=== PATIENT | female | born 2000 | race Caucasian/White ===

== ENCOUNTER 2021-09-24 13:03 | Inpatient (IN) | payer OTHER ==
[~2021-09-24] VITALS: Ht 167.6 cm; Wt 71.6 kg
--- NOTE | 2021-09-24 13:27 | PHYS DOC ---
General Adult EDM: Chief Complaint: FLANK PAIN HPI: HPI: Patient is a 21-year-old female presents with right-sided flank pain. Patient has been on an antibiotic for the past couple of days for UTI. Patient was seen in urgent care last night and changed antibiotic to Cipro. Patient is now running a fever and pain has increased on right flank. (HUANG GALLEGO APRN) Review of Systems: Review of Systems: ROS At least 10 ROS systems have been reviewed and are negative except as documented in the HPI. General: Negative except as outlined in HPI above. Skin: Negative except as outlined in HPI above. HEENT: Negative except as outlined in HPI above. Neck: Negative except as outlined in HPI above. Respiratory: Negative except as outlined in HPI above.. Cardiovascular: Negative except as outlined in HPI above. Abdomen: Negative except as outlined in HPI above. : Negative except as outlined in HPI above. Back/MSK: Negative except as outlined in HPI above. Neuro: Negative except as outlined in HPI above. Psych: Negative except as outlined in HPI above. (HUANG GALLEGO APRN) Allergies: Allergies: Allergies Coded Allergies Type Severity Reaction Last Updated Verified ibuprofen Allergy Severe 09/24/21 Yes (HUANG GALLEGO APRN) Physical Exam: PE: Constitutional: Well developed, well nourished, no acute distress, non-toxic appearance. [] HENT: Normocephalic, atraumatic, bilateral external ears normal, oropharynx moist, no oral exudates, nose normal. [] Eyes: PERRLA, EOMI, conjunctiva normal, no discharge. [] Neck: Normal range of motion, no tenderness, supple, no stridor. [] Cardiovascular:Heart rate regular rhythm, no murmur [] Lungs & Thorax: Bilateral breath sounds clear to auscultation [] Abdomen: Bowel sounds normal, soft, no tenderness, no masses, no pulsatile mass es. [] Skin: Warm, dry, no erythema, no rash. [] Back: No tenderness, no CVA tenderness. [] Extremities: No tenderness, no cyanosis, no clubbing, ROM intact, no edema. [] Neurologic: Alert and oriented X 3, normal motor function, normal sensory function, no focal deficits noted. [] Psychologic: Affect normal, judgement normal, mood normal. [] (GALLEGOHUANG APRN) EKG: EKG: [] (HUANG GALLEGO APRN) Radiology/Procedures: Radiology/Procedures: []INDICATION: Reason: FLANK PAIN,R / Spl. Instructions: / History: COMPARISON: None. TECHNIQUE: Axial CT images were obtained through the abdomen and pelvis without intravenous contrast. One or more of the following individualized dose reduction techniques were utilized for this examination: 1. Automated exposure control; 2. Adjustment of the mA and/or kV according to patient size; 3. Use of iterative reconstruction technique. FINDINGS: Vascular: No abdominal aortic aneurysm. Hepatobiliary: No intrahepatic biliary duct dilation. Pancreas: Limited assessment without contrast. Spleen: Spleen unremarkable. Renal/Bladder: Urinary bladder wall is mildly prominent in thickness for the degree of distention. Mild right-sided hydronephrosis and hydroureter with some perinephric and periureteral edema and fluid Gastrointestinal: . Secondary to lack of intravenous and oral contrast evaluation of the appendix is limited. It may be visualized for short distance but not well evaluated. IMPRESSION: * Right-sided mild hydronephrosis and hydroureter with perinephric and periureteral edema is also small amount of adjacent fluid. Differential considerations would include a recently passed right ureter stone with another possible cause including urinary tract infection. Would correlate with symptoms and lab markers. Electronically signed by: Levy Alfonso MD (09/24/2021 2:47 PM) [id number] DICTATED AND SIGNED BY: LEVY ALFONSO MD DATE: 09/24/21 1430 CC: HUANG GALLEGO APRN; PCP,NO ~ (HUANG GALLEGO APRN) Heart Score: C/O Chest Pain: No Risk Factors: Risk Factors: DM, Current or recent (<one month) smoker, HTN, HLP, family history of CAD, obesity. Risk Scores: Score 0 - 3: 2.5% MACE over next 6 weeks - Discharge Home Score 4 - 6: 20.3% MACE over next 6 weeks - Admit for Clinical Observation Score 7 - 10: 72.7% MACE over next 6 weeks - Early Invasive Strategies (HUANG GALLEGO APRN) Course & Med Decision Making: Course & Med Decision Making Pertinent Labs and Imaging studies reviewed. (See chart for details) [] 21-year-old female presents with right-sided flank pain. Patient is currently on ciprofloxacin for UTI. Patient reports her symptoms have not improved after antibiotic treatment for 3 days. Patient was running 102 t emperature at home. Work-up in ER consisted of CBC, CMP, lipase, CT abdomen and pelvis. Patient's pain was treated while in the ER. Patient given Toradol, Tylenol for fever control. Urinalysis came back with large blood, nitrates, leukocytes. CT abdomen pelvis shows mild right-sided hydronephrosis and hydroureter with some perinephric and periureteral edema and fluid. I discussed all results with patient. Advised patient she would need to be admitted to receive IV antibiotics. Spoke with Dr. Murdock who is willing to accept patient at [place]. Patient will be admitted for pyelonephritis. Patient started on Levaquin. (HUANG GALLEGO APRN) Kandice Disclaimer: Kandice Disclaimer: This electronic medical record was generated, in whole or in part, using a voice recognition dictation system. (HUANG GALLEGO APRN) Attending Co-Sign The patient was seen and interviewed as well as examined at the bedside. The chart was reviewed. The case was discussed. Agree with the plan of care. (SHARMILA YATES DO) Departure Departure: Disposition: HOME / SELF CARE / HOMELESS Condition: STABLE Referrals: PCP,NO (PCP) HUANG GALLEGO APRN Sep 24, 2021 13:27 SHARMILA YATES DO Sep 25, 2021 06:07
[2021-09-24] MEDS ORDERED: ACETAMINOPHEN 500 MG TABLET PO ONE (13:45)
[2021-09-24] MEDS ORDERED: ONDANSETRON PF 4 MG/2 ML VIAL. IVP ONE ×2 (13:45→16:15)
[2021-09-24] MEDS ORDERED: IV NORMAL SALINE 1,000ML 1,000 ML IV ONE (13:45)
[2021-09-24 13:50] LABS: BASO % 1 % (0-3); EOS % 0 % (0-3); HEMATOCRIT 38.2 % (36.0-47.0); LYMPH # 0.5 x10^3/uL (1.0-4.8); LYMPH % 7 % (24-48); MEAN CORPUSCULAR HEMOGLOBIN 32 pg (25-35); MEAN CORPUSCULAR HGB CONC 34 g/dL (31-37); MEAN CORPUSCULAR VOLUME 94 fL (79-100); MONO # 0.3 x10^3/uL (0.0-1.1); MONO % 4 % (0-9); NEUT # 6.5 x10^3uL (1.8-7.7); NEUT % 89 % (31-73); PLATELET COUNT 169 x10^3/uL (140-400); RED BLOOD COUNT 4.09 x10^6/uL (3.50-5.40); RED CELL DISTRIBUTION WIDTH 11.9 % (11.5-14.5); WHITE BLOOD COUNT 7.4 x10^3/uL (4.0-11.0)
[2021-09-24 13:59] LABS: CALCIUM 8.9 mg/dL (8.5-10.1); CREATININE 0.9 mg/dL (0.6-1.0); GFR 78.3; POTASSIUM 3.6 mmol/L (3.5-5.1)
[2021-09-24 14:00] LABS: BACTERIA,URINE FEW /HPF (0-FEW); CLARITY,URINE CLOUDY; COLOR,URINE YELLOW; GLUCOSE,URINE NEG (NEG); NITRITE,URINE POS (NEG); UROBILINOGEN,URINE 0.2 mg/dL (0.2 mg/dL); WBC,URINE TNTC /HPF (0-4)
[2021-09-24 14:01] LABS: SQUAMOUS EPITHELIAL CELL,UR MOD /LPF
[2021-09-24 14:05] LABS: ALBUMIN 3.6 g/dL (3.4-5.0); TOTAL PROTEIN 7.2 g/dL (6.4-8.2)
--- NOTE | 2021-09-24 14:50 | RAD ---
INDICATION: Reason: FLANK PAIN,R / Spl. Instructions: / History: COMPARISON: None. TECHNIQUE: Axial CT images were obtained through the abdomen and pelvis without intravenous contrast. One or more of the following individualized dose reduction techniques were utilized for this examinat ion: 1. Automated exposure control; 2. Adjustment of the mA and/or kV according to patient size; 3 . Use of iterative reconstruction technique. FINDINGS: Vascular: No abdominal aortic aneurysm. Hepatobiliary: No intrahepatic biliary duct dilation. Pancreas: Limited assessment without contrast. Spleen: Spleen unremarkable. Renal/Bladder: Urinary bladder wall is mildly prominent in thickness for the degree of distention. Mi ld right-sided hydronephrosis and hydroureter with some perinephric and periureteral edema and fluid Gastrointestinal: . Secondary to lack of intravenous and oral contrast evaluation of the appendix is limited. It may be visualized for short distance but not well evaluated. IMPRESSION: * Right-sided mild hydronephrosis and hydroureter with perinephric and periureteral edema is also s mall amount of adjacent fluid. Differential considerations would include a recently passed right uret er stone with another possible cause including urinary tract infection. Would correlate with symptoms and lab markers. Electronically signed by: Juan M Moe MD (09/24/2021 2:47 PM) [id number]
[2021-09-24] MEDS: IV NORMAL SALINE 1,000ML 1,000 ML IV SCH (15:52)
[2021-09-24] MEDS: MORPHINE SULFATE 4 MG/ML DISP.SYRIN. IVP PRN ×2 (15:55→18:46)
[2021-09-24 17:00] VITALS: BP 98/62
[2021-09-24] MEDS ORDERED: ONDANSETRON PF 4 MG/2 ML VIAL. IVP PRN (18:30)
[2021-09-24 20:07] VITALS: BP 100/65
[2021-09-24 23:49] VITALS: BP 97/60
[2021-09-25] MEDS: MORPHINE SULFATE 4 MG/ML DISP.SYRIN. IVP PRN ×2 (00:26→11:19)
[2021-09-25] MEDS: IV NORMAL SALINE 1,000ML 1,000 ML IV SCH (03:50)
[2021-09-25 06:30] VITALS: BP 94/59
[2021-09-25] MEDS: LACTOBACILLUS RHAMNOSUS GG 1 CAPSULE. PO SCH ×2 (09:57→20:45)
--- NOTE | 2021-09-25 10:17 | HP ---
DATE OF SERVICE: 09/25/2021 ADMIT DATE: 09/24/2021 ATTENDING PHYSICIAN: Dr. Murdock. CHIEF COMPLAINT: Right flank pain. HISTORY OF PRESENT ILLNESS: The patient is a very pleasant 21-year-old female who was diagnosed and started on antibiotics for urinary tract infection. She just got 2 weeks ago. She is coming back from her [facility]. She has had fevers, pain and nausea. No vomiting. She went initially to an urgent care clinic. Cultures were sent out. It did grow out E. coli, but was resistant to the Bactrim antibiotic she was placed on. They called in Cipro, but before she was able to take any doses down, she went to the Emergency Department with worsening symptoms. She was given Levaquin as well as pain meds and fluids. She is admitted then with pyelonephritis as part of the workup. PAST MEDICAL HISTORY: Unremarkable. She has been fairly healthy. She is not on any prescription meds. SOCIAL HISTORY: Nonsmoker, nondrinker. She recently got less than 2 weeks ago just returning from her [facility]. FAMILY HISTORY: Parents alive in their early 50s. No chronic problems. PAST SURGICAL HISTORY: None. REVIEW OF SYSTEMS: Significant for the recent honeymoon, the trip. No COVID exposure. All other systems reviewed and turned to be negative. PHYSICAL EXAMINATION: GENERAL: When I saw her, this is a very pleasant young female. VITAL SIGNS: Initial vital signs showed a blood pressure 100/65 mmHg. She is afebrile. Oxygen saturation 95% on room air. HEENT: Head is without trauma. Pupils are reactive. Sclerae nonicteric. The oropharynx is clear. NECK: Supple, no bruits. LUNGS: Otherwise clear. CARDIOVASCULAR: Showed regular heart tones. ABDOMEN: Soft. No guarding. EXTREMITIES: Showed minimal right sided flank tenderness on palpation, no masses. Without edema. NEUROLOGIC FINDINGS: Focally intact. PERTINENT LABORATORY STUDIES: The hemoglobin on admission was 13.0 g/dL, white count 7400. Electrolytes within normal range. Nonfasting blood sugar 126. Urinalysis showed moderate amount of red cells, too numerous to count white cells, large amount of nitrites. Serology negative for coronavirus. ASSESSMENT: 1. A 21-year-old female with a right sided acute pyelonephritis. 2. Literally honeymoon cystitis as she just returned from her [facility]. 3. Mild dehydration clinically. PLAN: 1. Admit to the inpatient unit. 2. Intravenous Levaquin has been ordered. 3. Pain control. 4. Diet as tolerated. ANIBAL DR: Saturnino TID: [id number]
[2021-09-25 10:21] VITALS: BP 107/63
[2021-09-25 14:49] VITALS: BP 102/70
[2021-09-25] MEDS ORDERED: MORPHINE SULFATE 4 MG/ML DISP.SYRIN. IV PRN (16:45)
[2021-09-25] MEDS ORDERED: IV NORMAL SALINE 1,000ML 1,000 ML IV SCH (16:45)
[2021-09-25 19:24] VITALS: BP 100/63
[2021-09-26 05:52] VITALS: BP 104/62
--- NOTE | 2021-09-27 02:37 | DS ---
DATE OF DISCHARGE: 09/26/2021 ATTENDING PHYSICIAN: Dane Murdock MD FINAL DISCHARGE DIAGNOSES: 1. Pyelonephritis. 2. Honeymoon cystitis. 3. Mild dehydration, rehydrated. HISTORY AND PHYSICAL: The patient is a 21-year-old female with nausea, flank pain and workup in the ED showed right-sided pyelonephritis. She had an urine culture done in urgent care clinic. She is otherwise healthy. The cultures grew back E. coli. I do not have the exact report, but it was sensitive to quinolones. PHYSICAL EXAMINATION: Please see my dictated note. PERTINENT LABORATORY AND X-RAY STUDIES: In this admission, her hemoglobin was 13.0 grams, white count 7400. Chemistry panel unremarkable. Liver panel normal. Serology negative for coronavirus. COURSE IN THE HOSPITAL: She was treated with intravenous Levaquin for 2 full days. Pain managed, diet advanced. By the third hospital day, her vital signs were stable. Pain had subsided. She is ready for discharge. I recommended 8 more days of Levaquin 750 p.o. one daily. In addition, she will take Tylenol [id number] for pain. I recommend a followup with her primary care physician and recheck UA in 10 days. Whether or not she will follow up, remains to be seen, but she is fairly reasonable. She recently moved here from out of town. She was discharged then from our hospital in stable condition with explicit drug and followup care. Total discharge time spent is 41 minutes. ORESTES GARCIA: Saturnino TID: [id number]
== END 2021-09-26 09:40 | disposition home or self-care (01) | DRG 690 ==
LOC: ER 13:03 → ER HOLD 15:19 → 1 SOUTH 16:11
PROVIDERS: ADMIT Hospitalist; ATTEND Hospitalist
DX: N13.6 Pyonephrosis (principal); Z87.442 Personal history of urinary calculi; E86.0 Dehydration; Z20.822 Contact with and (suspected) exposure to COVID-19; Z88.8 Allergy status to other drugs, medicaments and biological substances; B96.20 Unspecified Escherichia coli [E. coli] as the cause of diseases classified elsewhere
CPT/HCPCS: 36415; 74176; 80053; 81001; 81025; 85025; 86140; 87040; 87077; 87086; 87186; 87426; 96365; 96375; 96376; J1956; J2270; J2405; J3010; U0003; 99285-25; J7030